=== PATIENT | male | born 1980 | race Caucasian/White ===

== ENCOUNTER 2017-10-21 13:22 | Outpatient (CLI) | payer OTHER | END 2017-10-21 17:00 | disposition home or self-care (01) | LOC: MRI 13:22 | DX: M54.5 Low back pain (principal); I10 Essential (primary) hypertension; M51.46 Schmorl's nodes, lumbar region; M48.061 Spinal stenosis, lumbar region without neurogenic claudication | CPT/HCPCS: 72148 ==

== ENCOUNTER 2017-12-26 19:17 | Emergency (ER) | payer OTHER ==
[~2017-12-26] VITALS: Ht 180.3 cm; Wt 80.7 kg
== END 2017-12-26 22:56 | disposition home or self-care (01) ==
LOC: ER 19:17
DX: K29.70 Gastritis, unspecified, without bleeding (principal)